=== PATIENT | female | born 1940 | race Caucasian/White ===

== ENCOUNTER 2016-12-10 19:34 | Inpatient (IN) | payer MEDICARE, MEDICAID ==
[2016-12-10 20:18] LABS: #Lymphocytes 0.9 thou/uL (1.20-3.40); #Monocytes 0.7 thou/uL (0.11-0.59); #Neutrophils 15.9 thou/uL (1.40-6.50); %Basophils 0.2 % (0.0-1.0); %Lymphocytes 5.3 % (21.0-51.0); %Monocytes 3.8 % (0.0-10.0); Hematocrit 29.4 % (36.0-47.0); Mean Platelet Volume 6.4 fL (7.4-10.4); Red Blood Cell (RBC) Count 2.76 mill/uL (4.20-5.40); White Blood Cell (WBC) Count 17.6 thou/uL (4.8-10.8)
[2016-12-10 20:43] LABS: ALT (SGPT) 28 U/L (8-55); AST (SGOT) 38 U/L (5-34); Alkaline Phosphatase 103 U/L (40-150); Anion Gap 15 mmol/L (10-20); BUN (Urea Nitrogen) 47 mg/dL (9.8-20.1); Bilirubin, Total 0.2 mg/dL (0.2-1.2); CK (CPK) 207 U/L (29-168); Calc. Creatinine Clearance 0 mL/min (70-130); Calcium 8.8 mg/dL (7.8-10.44); Carbon Dioxide 22 mmol/L (23-31); Chloride 102 mmol/L (98-107); Estimated GFR-MDRD 27; Globulin 3.9 g/dL (2.4-3.5); Protein, Total 6.8 g/dL (6.0-8.3)
[2016-12-10 20:44] LABS: Troponin I 0.039 ng/mL (< 0.028)
[2016-12-10 20:48] LABS: Anisocytosis SLIGHT = 6-15 cells (100X) (0-5/hpf); Macrocytosis SLIGHT = 6-15 cells (100X) (0-5/hpf); Ovalocytes SLIGHT = 2-5 cells (100X) (0-1/hpf); Polychromasia SLIGHT = 2-3 cells (100X) (0-2/hpf); Target Cells SLIGHT = 2-5 cells (100X) (0-1/hpf)
[2016-12-10 20:50] LABS: Schistocytes SLIGHT = 2-5 cells (100X) (0-1/hpf)
[2016-12-10 21:18] LABS: Bilirubin Negative (Negative); Blood, Urine Small (Negative); Glucose, Urine (Dipstick) Negative (Negative); Ketone, Urine Negative (Negative); Nitrite Negative (Negative); Protein, Urine (Dipstick) 100 mg/dL (Neg-Trace); Urobilinogen 0.2 mg/dL (0.2-1.0)
[2016-12-10 21:22] LABS: Bacteria/HPF 4+ HPF (None Seen); Hyaline Casts/LPF 7-10 HYALINE CAST LPF (0-3 Hyaline); RBC/HPF 0-3 HPF (0-3); Squamous Epithelial 0-3 HPF (0-3)
--- NOTE | 2016-12-10 21:50 | RAD ---
PORTABLE CHEST ONE VIEW 12/10/16 at 8:01 p.m. HISTORY: Dyspnea. FINDINGS/IMPRESSION: Comparison made with the exam of 05/03/16. Changes of median sternotomy again seen. The heart size is stable. The aorta is tortuous. The mass-l chrissie opacity in the right upper lobe is again seen and appears slightly larger than on the previous s tudy. No new infiltrates or effusions are identified. POS: MAC
[2016-12-10] MEDS ORDERED: Piperacillin/Tazobactam 3.375 GM VIAL ONE (21:57)
[2016-12-10 22:02] LABS: Anion Gap 13 mmol/L (-14-95); T. Carbon Dioxide 24.5 mmol/L (1.0-85.0); pH (Venous) 7.435 (7.35-7.45); vO2 Saturation-calc 99.5 % (0.0-100.0)
--- NOTE | 2016-12-10 22:25 | PDOC.EVN ---
Event Note - Event Note Event Note: [id number] H&P Dictated 1. Pneumonia 2. Sepsis 3. UTI 4. Hypotension 5. Acute hypoxic respiratory failure 6. Acute COPD exacerbation Plan: see orders
[2016-12-10] MEDS ORDERED: Oxymetazoline HCl 0.05% ( 15 ML ) NASAL PRN (22:43)
[2016-12-10] MEDS ORDERED: Albuterol Sulfate 2.5 mg/3 ml Neb NEB PRN (22:46)
[2016-12-10 22:58] LABS: Lactic Acid - Sepsis 1.1 mmol/L (0.5-2.2)
[2016-12-10] MEDS ORDERED: [UNRECOGNIZED DRUG - OTHER] IVPB PRN (23:29)
[2016-12-10 23:34] LABS: Troponin I 0.031 ng/mL (< 0.028)
[2016-12-10] MEDS: Sodium Chloride 0.9% 1,000 ML IV SCH (23:49)
[2016-12-11] MEDS: Sodium Chloride 0.9% 500 ML IVPB SCH ×2 (00:35→01:44)
[2016-12-11] MEDS ORDERED: Sodium Chloride 0.9% 500 ML IVPB SCH (02:00)
[2016-12-11 05:15] LABS: #Lymphocytes 0.6 thou/uL (1.20-3.40); #Monocytes 0.4 thou/uL (0.11-0.59); #Neutrophils 12.2 thou/uL (1.40-6.50); %Eosinophils 0.1 % (0.0-10.0); %Lymphocytes 4.5 % (21.0-51.0); %Monocytes 2.7 % (0.0-10.0); Hematocrit 27.1 % (36.0-47.0); Mean Platelet Volume 6.5 fL (7.4-10.4); Red Blood Cell (RBC) Count 2.52 mill/uL (4.20-5.40); White Blood Cell (WBC) Count 13.1 thou/uL (4.8-10.8)
[2016-12-11 05:38] LABS: ALT (SGPT) 31 U/L (8-55); AST (SGOT) 37 U/L (5-34); Alkaline Phosphatase 98 U/L (40-150); Anion Gap 13 mmol/L (10-20); BUN (Urea Nitrogen) 40 mg/dL (9.8-20.1); Bilirubin, Total 0.2 mg/dL (0.2-1.2); Calc. Creatinine Clearance 40 mL/min (70-130); Calcium 8.2 mg/dL (7.8-10.44); Carbon Dioxide 21 mmol/L (23-31); Chloride 107 mmol/L (98-107); Estimated GFR-MDRD 38; Globulin 3.6 g/dL (2.4-3.5); Protein, Total 6.2 g/dL (6.0-8.3)
[2016-12-11 05:43] LABS: Troponin I 0.054 ng/mL (< 0.028)
--- NOTE | 2016-12-11 06:58 | HP ---
CHIEF COMPLAINT: Lethargy. HISTORY OF PRESENT ILLNESS: Patient is a 76-year-old female with past medical history of lung CA, hypertension, coronary artery disease, anxiety, depression, hyperlipidemia, dementia and COPD, now came to the hospital because of lethargy. History obtained from the ED physician and the ER notes. The patient does not know why she came to the hospital, but complains of chronic cough. Cough was associated with sputum production. Patient was in a half-way and patient was found lethargic with possible confusion, so patient was brought to the ER. Upon ER arrival, the patient was hypoxic. Her sats were 79% , so patient was placed on BiPAP. Patient complains of chronic cough. Denies any fever, denies any chills, denies chest pain, denies dizziness. Currently, denies any other complaints. PAST MEDICAL HISTORY: As per HPI. PAST SURGICAL HISTORY: CABG and lung biopsy. SOCIAL HISTORY: Positive for smoking. Denies alcohol, denies any drugs. FAMILY HISTORY: Positive for medical problems. REVIEW OF SYSTEMS: Constitutional: Denies any fever, denies any chills. Eyes : No vision problems. Ears: Denies any hearing loss. Neck: Denies neck pain. Cardiovascular: Denies any chest pain. Respiratory: Positive for cough , positive for sputum production. Gastrointestinal: Denies nausea or vomiting. Musculoskeletal: Denies any joint deformities. Integument: Denies any rash. Cranial Nervous System: Positive for lethargy. Psychiatric: Positive for dementia. All other review of systems are reviewed and are negative. PHYSICAL EXAMINATION: CONSTITUTIONAL/VITAL SIGNS: At the time of H\T\P performed, blood pressure is 102/66, pulse ox 98% on BiPAP, heart rate 99 and respiratory rate 18. GENERAL: This patient appears tired and denies patent. HEENT: Nose normal. Ears normal. Teeth, poor dentition. Tongue is moist. FACE: Positive for BiPAP mask. NECK: Supple. No JVD. CARDIOVASCULAR SYSTEM: S1 and S2 present. Regular rate and rhythm. Positive for murmur. No rubs, no gallops. RESPIRATORY SYSTEM: Positive for rhonchi. Positive for wheezing. Positive for crackles. Diminished at the bases, on BiPAP. GASTROINTESTINAL: Abdomen is soft and nontender. No guarding, no organomegaly , no masses felt. MUSCULOSKELETAL: No edema. CRANIAL NERVES SYSTEM: Awake, has difficulty hearing, but follows commands. PSYCHIATRIC: Mood calm. LABORATORY AND IMAGING DATA: At the time of H\T\P performed, white count 17.6, hemoglobin 9.2 and platelet count is 490. Blood gas; pH 7.43, pCO2 35, BMP showed sodium 135, potassium 4.4, chloride 102, CO2 of 22, BUN of 47, creatinine of 1.84, baseline creatinine is around 0.921, alkaline phosphatase 207, troponin 0.039 and serum total protein 2.9. EKG; no acute ST changes. ASSESSMENT AND PLAN: The patient is a 76-year-old female. 1. Hypotension, might be secondary to sepsis and possible infection. Plan is to check urine for culture. Urine is positive for urinary tract infection. Plan to do blood cultures. We will monitor blood pressures closely. Continue IV fluids. 2. Sepsis secondary to urinary tract infection. Continue IV antibiotics. Plan to check 2 sets of blood cultures and urine culture and sensitivity. We will follow the patient closely. 3. Acute hypoxic respiratory failure plus history of lung mass. Chest x-ray showed worsening lung mass. We will place patient on broad-spectrum antibiotics. We will check CT chest to evaluate the infiltrate. We will consult Pulmonology to evaluate the patient. 4. Acute chronic obstructive pulmonary disease exacerbation. Plan to start the patient on breathing treatments and IV steroids. We will monitor respiratory status closely. 5. History of hypertension. Hold blood pressure meds. 6. Acute kidney injury. Monitor creatinine closely. SUSANNA currently might be secondary to hypotension. We will monitor creatinine closely. Continue MIV fluids. The case was discussed in detail with the patient. We will admit the patient to IMU for close monitoring. QUINCY
[2016-12-11] MEDS ORDERED: Mometasone/Formoterol 120 PUFF INHALER INH SCH (07:00)
[2016-12-11] MEDS ORDERED: Amiodarone 200 MG TAB PO SCH ×2 (09:00)
[2016-12-11] MEDS ORDERED: SALMETEROL INH SCH (09:00)
[2016-12-11] MEDS: Cefepime 2 GM, Admixture Fee 1 EACH in Sodium Chloride 0.9% 100 ML IVPB SCH (09:00)
[2016-12-11] MEDS ORDERED: ALPRAZolam 0.5 MG TAB PO SCH (09:00)
[2016-12-11] MEDS ORDERED: Non-Formulary Item 1 EACH (Tiotropium Bromide [Spiriva Respimat] 2 PUFF) INH SCH (09:00)
[2016-12-11] MEDS ORDERED: Apixaban 5 MG TAB PO SCH (09:00)
[2016-12-11] MEDS ORDERED: Pregabalin 75 MG CAP PO SCH (09:00)
[2016-12-11] MEDS ORDERED: FLUTICASONE INH SCH (09:00)
[2016-12-11] MEDS ORDERED: Dextrose 50% Abboject 50 ML SYRINGE SLOW IVP PRN (11:29)
[2016-12-11] MEDS ORDERED: Dextrose 5% in Water 1,000 ML IV PRN (11:29)
[2016-12-11] MEDS: Sodium Chloride 0.9% 1,000 ML IV SCH (11:36)
[2016-12-11] MEDS: HumaLOG 300 UNITS/3 ML VIAL SC PRN ×2 (11:37→15:46)
--- NOTE | 2016-12-11 12:21 | CON ---
DATE OF CONSULTATION: 12/11/2016 SERVICE: Pulmonary Medicine REASON FOR CONSULTATION: Respiratory failure. HISTORY OF PRESENT ILLNESS: The patient is a 76-year-old white female with past medical history sig nificant for schizoaffective disorder. She spends most of her time in the bed or in a wheelchair. She refuses almost all medical therapy. We talked to the nursing facility and they are suggesting that 90% of the time she refuses all medications. Whenever I try to talk to her, she just screams \\ \\"leave me alone, leave me alone\\\\". She was in her usual state of health when she had increasing m entation issues. She was brought to the emergency department. Chest x-ray demonstrated a right upp er lobe lesion that was worse than a recent CT scan. She had a white blood cell count was elevated, marginal blood pressures. As such, she was treated for her severe sepsis with antibiotics. She wa s tucked in to the ICU and transiently was placed on BiPAP, which she then refused. She has been on 2 liters nasal cannula and her sats have been okay. PAST MEDICAL HISTORY: 1. Schizoaffective disorder. 2. Dementia. 3. History of adenocarcinoma of the lung, status post lobectomy on the left. 4. Hypertension. 5. Coronary artery disease. 6. Anxiety disorder. 7. Major depressive disorder. 8. Dyslipidemia. 9. Chronic obstructive pulmonary disease, possible. PAST SURGICAL HISTORY: 1. Left lobectomy: 2. Coronary artery bypass graft. SOCIAL HISTORY: She continues to smoke a pack and a half a day. There is no report of her using al cohol or illicit drugs. FAMILY HISTORY: Noncontributory. ALLERGIES: MEPERIDINE, DIPHENHYDRAMINE. MEDICATIONS: List of inpatient medications was reviewed. Multiple updates were made. REVIEW OF SYSTEMS: Review of systems cannot be obtained as the patient essentially is not cooperati ng. She is more than capable however, of having a conversation. PHYSICAL EXAMINATION: VITAL SIGNS: Afebrile, pulse 90, blood pressure 89/51, respirations 15, saturation 100% on 3 liters nasal cannula. GENERAL: The patient is awake, alert, in no apparent distress with stimulation. She then will go b [facility] to sleep on purpose. LUNGS: Rhonchi are present, particularly on the right. There is not much of a prolonged expiratory phase. She does demonstrates fairly decent air entry. No wheezing or crackles are appreciated. HEART: Normal rate, regular. ABDOMEN: Soft, nontender, nondistended. Bowel sounds are positive. MUSCULOSKELETAL: No cyanosis or clubbing. No pitting in the bilateral lower extremities. NEUROLOGIC: Grossly nonfocal. LABORATORY DATA: WBC 13.1 and down trending, hemoglobin 8.5, platelets 429,000. Ph 7.43, pCO2 35, pO2 161. Creatinine down trending to 1.36. Basic metabolic profile, liver function studies are oth erwise unremarkable. Troponin 0.054 and gently up trending. WBC count in the urine is greater than 50. She has got positive leukocyte esterase and 4+ bacteria. Blood cultures x2 are negative to da te. IMAGIN. Chest x-ray demonstrates a right upper lobe pulmonary mass/infiltrate. 2. CT of the chest - patient refused. ASSESSMENT: 1. Pulmonary mass. 2. Adenocarcinoma of the lung, history of. 3. Healthcare-associated pneumonia versus pulmonary abscess, suspected. 4. Severe sepsis. 5. Acute hypoxic respiratory failure. 6. Schizoaffective disorder and dementia. PLAN: The patient will continue her antibiotics. We will transition her out of the ICU as her low blood pressures have actually stabilized. End-organ damage is also clearing. As such, she will go to the telemetry unit. Palliative Care consultation will be placed as she has significant comorbidi ties and is refusing multiple different types of therapy. We will initiate some Accu-Cheks and insu lito. Pulmonary Critical Care will continue to follow for the time being. Dr. Ritchie will resume c are on Thursday.
[2016-12-11] MEDS: Nicotine 14 MG PATCH TD SCH (16:02)
[2016-12-11] MEDS ORDERED: Ondansetron ODT 4 MG TAB PO PRN (16:09)
[2016-12-11] MEDS ORDERED: HumaLOG 300 UNITS/3 ML VIAL SC PRN (16:09)
[2016-12-11] MEDS ORDERED: Acetaminophen 325 MG TAB PO PRN (16:09)
[2016-12-11] MEDS ORDERED: Ondansetron HCl/PF 4 MG/2 ML Vial IVP PRN (16:09)
[2016-12-11] MEDS ORDERED: Calcium Carbonate 500 MG ChewTAB PO PRN (16:09)
[2016-12-11] MEDS ORDERED: Acetaminophen 650 MG Suppository PR PRN (16:09)
[2016-12-11] MEDS ORDERED: Senokot 8.6 MG TAB PO PRN (16:09)
--- NOTE | 2016-12-11 16:31 | PDOC.PN ---
- Subjective Encounter Start Date: 12/11/16 Encounter Start Time: 15:00 Patient seen and examined. Lethargic. No overnight events - Objective Resuscitation Status: Resuscitation Status FULL:Full Resuscitation MAR Reviewed: Yes Vital Signs & Weight: Vital Signs (12 hours) Temp Pulse Resp Pulse Ox 12/11/16 12:55 95 17 99 12/11/16 12:00 96.6 F L 96 12/11/16 10:31 100 12/11/16 10:26 90 19 99 12/11/16 07:46 97.6 F 78 12 99 12/11/16 07:00 97.6 F 12/11/16 06:52 78 12/11/16 06:51 75 13 88 L Weight Admit Weight 157 lb Weight 157 lb 10.088 oz Most Recent Monitor Data Heart Rate from ECG 106 NIBP 114/71 NIBP BP-Mean 88 Respiration from ECG 15 SpO2 97 I&O: 12/10/16 12/11/16 12/12/16 06:59 06:59 06:59 Intake Total 1400 175 Output Total 1 600 Balance 1399 -425 Result Diagrams: 12/12/16 04:05 12/12/16 04:04 Additional Labs: Accuchecks 12/11/16 12/11/16 15:43 11:33 POC Glucose 205 H 217 H Radiology Reviewed by me: Yes (CXR - reviewed) EKG Reviewed by me: Yes (Tele Afib - rate controlled) Phys Exam - Physical Examination Constitutional: NAD (Lethargic, Opens eyes to pain.) Respiratory: no rales (Scat wheezing/rales. Symmetrical) Cardiovascular: no rub, irregular No heaves/pulsation Gastrointestinal: soft, non-tender, no distention, positive bowel sounds Musculoskeletal: no edema, pulses present Neurological: normal sensation Neuro/Psych - Cannot assess due to sedation. Dx/Plan (1) COPD exacerbation Code(s): J44.1 - CHRONIC OBSTRUCTIVE PULMONARY DISEASE W (ACUTE) EXACERBATION Status: Acute Comment: with suspected Pneumonia ?Pneumococcal (2) Acute hypoxemic respiratory failure Code(s): J96.01 - ACUTE RESPIRATORY FAILURE WITH HYPOXIA Status: Acute (3) Chronic a-fib Code(s): I48.2 - CHRONIC ATRIAL FIBRILLATION Status: Chronic (4) Hx pulmonary embolism Code(s): Z86.711 - PERSONAL HISTORY OF PULMONARY EMBOLISM Status: Chronic (5) Anxiety and depression Code(s): F41.9 - ANXIETY DISORDER, UNSPECIFIED; F32.9 - MAJOR DEPRESSIVE DISORDER, SINGLE EPISODE, UNSPECIFIED Status: Chronic (6) Protein-calorie malnutrition, mild Code(s): E44.1 - MILD PROTEIN-CALORIE MALNUTRITION Status: Chronic (7) CKD (chronic kidney disease), stage III Status: Chronic (8) CAD (coronary artery disease) Code(s): I25.10 - ATHSCL HEART DISEASE OF [place] CORONARY ARTERY W/O ANG PCTRS Status: Chronic (9) Dyslipidemia Code(s): E78.5 - HYPERLIPIDEMIA, UNSPECIFIED Status: Chronic (10) Hypertension Code(s): I10 - ESSENTIAL (PRIMARY) HYPERTENSION Status: Chronic (11) Elevated troponin Code(s): R74.8 - ABNORMAL LEVELS OF OTHER SERUM ENZYMES Status: Acute Comment: due to demand ischemia - Plan cont current plan of care, continue antibiotics, PT/OT, school social worker, speech therapy, DVT proph w/SCDs * The home meds which were started were from last admission. Pt is not on Eliquis/Amiodarone - She however refused all her meds today - Will dc Amiodarone /Eliquis(it was ordered on admission from last discharge) - Patient is on Warfarin at [place] - Stat PT/INR ordered. * AM labs * Pulm following * Cont to monitor * Transfer to [facility] * Resume Warfarin * Add Nebs/Nicotin patch Review of Systems - Review of Systems Other: Cannot be obtained due to current mentation - Medications/Allergies Allergies/Adverse Reactions: Allergies Allergy/AdvReac Type Severity Reaction Status Date / Time meperidine HCl [From Demerol] Allergy Intermediate Nausea Verified 12/11/16 00: 09 diphenhydramine Allergy Verified 12/11/16 00:09 [From Benadryl] Medications: Current Medications Acetaminophen (Tylenol) 650 mg PO Q4H PRN PRN Reason: Headache/Fever or Pain Acetaminophen (Tylenol) 650 mg PA Q4H PRN PRN Reason: Headache/Fever or Pain Albuterol Sulfate (Ventolin) 2.5 mg NEB Q2H PRN PRN Reason: Wheezing Albuterol/Ipratropium (Duoneb) 3 ml IPPB [id number] JENNIFER Last Admin: 12/11/16 12:55 Dose: 3 ml Albuterol/Ipratropium (Duoneb) 3 ml NEB [id number] PRN PRN Reason: SOB &/or Wheezing Albuterol/Ipratropium (Duoneb) 3 ml NEB [id number] JENNIFER Atorvastatin Calcium (Lipitor) 10 mg PO HS [facility] Calcium Carbonate (Tums) 1,000 mg PO Q4H PRN PRN Reason: Heartburn or Indigestion Dextrose/Water (Dextrose 50%) 25 gm SLOW IVP PRN PRN PRN Reason: Hypoglycemia Divalproex Sodium (Depakote Sprinkle) 125 mg PO BID JENNIFER Docusate Sodium (Colace) 100 mg PO BID [facility] Famotidine (Pepcid) 20 mg PO DAILY JENNIFER Glucagon (Glucagon) 1 mg IM PRN PRN PRN Reason: Hypoglycemia Cefepime HCl 2 gm/Miscellaneous Medication 1 each/ Sodium Chloride 100 mls @ 200 mls/hr IVPB Q24HR [facility] Last Admin: 12/11/16 09:00 Dose: 100 mls Sodium Chloride (Normal Saline 0.9%) 1,000 mls @ 75 mls/hr IV .[id number] [facility] Last Admin: 12/11/16 11:36 Dose: 1,000 mls Vancomycin HCl 1 gm/ Device 200 mls @ 200 mls/hr IVPB Q24HR [facility] Dextrose/Water (D5w) 1,000 mls @ 0 mls/hr IV .Q0M PRN; As Directed PRN Reason: Hypoglycemia Insulin Human Lispro (Humalog) 0 units SC .MODERATE SLIDING SC PRN PRN Reason: Moderate Correctional Scale Last Admin: 12/11/16 15:46 Dose: 4 unit Insulin Human Lispro (Humalog) 0 units SC .BEDTIME SLIDING SC PRN PRN Reason: Bedtime Correctional Scale Miscellaneous Medication (Pharmacy To Dose) 0 each IVPB PRN PRN PRN Reason: VANC/RENAL Pharmacy to Dose Nicotine (Nicoderm Patch) 14 mg TD Q24HR [facility] Last Admin: 12/11/16 16:02 Dose: 14 mg Non-Formulary Medication (Umeclidinium/Vilanterol [Anoro Ellipta 62.5/25 Mcg Inh ]) 1 puff IH DAILY-RT [facility] Non-Formulary Medication (Umeclidinium Delta [Incruse Ellipta]) 1 inh IH DAILY JENNIFER Ondansetron HCl (Zofran Odt) 4 mg PO Q6H PRN PRN Reason: Nausea/Vomiting Ondansetron HCl (Zofran) 4 mg IVP Q6H PRN PRN Reason: Nausea/Vomiting Prednisone (Prednisone) 10 mg PO QAM-WM [facility] Senna (Senokot) 2 tab PO HSPRN PRN PRN Reason: Constipation Sodium Chloride (Flush - Normal Saline) 10 ml IVF Q12HR [facility] Last Admin: 12/11/16 09:01 Dose: 10 ml Sodium Chloride (Flush - Normal Saline) 10 ml IVF PRN PRN PRN Reason: Saline Flush Warfarin Sodium (Coumadin) 1.25 mg PO ASDIR JENNIFER Warfarin Sodium (Coumadin) 5 mg PO ASDIR JENNIFER
[2016-12-11] MEDS ORDERED: Warfarin Sodium 1.25 MG HALF.TAB PO SCH (17:00)
[2016-12-11] MEDS ORDERED: WARFARIN PO PRN (17:15)
[2016-12-11] MEDS ORDERED: Phytonadione 10 MG/ML AMP PO SCH (18:15)
[2016-12-11 18:28] LABS: PTT 109.5 SEC (22.9-36.1); Prothrombin Time 120.4 SEC (12.0-14.7)
[2016-12-11] MEDS ORDERED: Vancomycin HCl 1 GM in Premix Bag 1 BAG IVPB SCH (21:00)
[2016-12-11] MEDS ORDERED: Donepezil HCl 5 MG TAB PO SCH (21:00)
[2016-12-11] MEDS: Docusate 100 MG CAP PO SCH (21:46)
[2016-12-11] MEDS: Atorvastatin Calcium 10 MG TAB PO SCH (21:46)
[2016-12-11] MEDS: Divalproex Sodium 125 mg Sprinkle Capsule PO SCH (21:46)
[2016-12-12 04:23] LABS: #Lymphocytes 0.7 thou/uL (1.20-3.40); #Monocytes 0.7 thou/uL (0.11-0.59); #Neutrophils 11.1 thou/uL (1.40-6.50); %Eosinophils 0.1 % (0.0-10.0); %Lymphocytes 5.3 % (21.0-51.0); %Monocytes 5.7 % (0.0-10.0); Hematocrit 25.9 % (36.0-47.0); Mean Platelet Volume 6.6 fL (7.4-10.4); Red Blood Cell (RBC) Count 2.42 mill/uL (4.20-5.40); White Blood Cell (WBC) Count 12.5 thou/uL (4.8-10.8)
[2016-12-12 04:39] LABS: Prothrombin Time 65.6 SEC (12.0-14.7)
[2016-12-12 04:48] LABS: ALT (SGPT) 70 U/L (8-55); AST (SGOT) 73 U/L (5-34); Alkaline Phosphatase 98 U/L (40-150); Anion Gap 11 mmol/L (10-20); BUN (Urea Nitrogen) 39 mg/dL (9.8-20.1); Bilirubin, Total Less than 0.2 mg/dL (0.2-1.2); Calc. Creatinine Clearance 50 mL/min (70-130); Calcium 8.3 mg/dL (7.8-10.44); Carbon Dioxide 22 mmol/L (23-31); Chloride 105 mmol/L (98-107); Estimated GFR-MDRD 49; Globulin 3.5 g/dL (2.4-3.5); Phosphorus 1.2 mg/dL (2.3-4.7); Protein, Total 6.1 g/dL (6.0-8.3)
[2016-12-12] MEDS ORDERED: Phytonadione 10 MG/ML AMP PO SCH (05:30)
[2016-12-12] MEDS: Sodium Chloride 0.9% 1,000 ML IV SCH (06:50)
[2016-12-12] MEDS: HumaLOG 300 UNITS/3 ML VIAL SC PRN (06:54)
[2016-12-12] MEDS ORDERED: Non-Formulary Item 1 EACH (Umeclidinium/Vilanterol [Anoro Ellipta 62.5/25 Mcg Inh] 1 PUFF IH SCH (07:00)
[2016-12-12] MEDS: predniSONE 5 MG TAB PO SCH (08:42)
[2016-12-12] MEDS: Famotidine 20 MG TAB PO SCH (08:43)
[2016-12-12] MEDS: Divalproex Sodium 125 mg Sprinkle Capsule PO SCH ×2 (08:43→20:03)
[2016-12-12] MEDS: Docusate 100 MG CAP PO SCH ×2 (08:43→20:29)
[2016-12-12] MEDS ORDERED: Non-Formulary Item 1 EACH (Umeclidinium Bromide [Incruse Ellipta] 1 INH) IH SCH (09:00)
[2016-12-12] MEDS: Cefepime 2 GM, Admixture Fee 1 EACH in Sodium Chloride 0.9% 100 ML IVPB SCH (09:28)
[2016-12-12] MEDS ORDERED: Sodium Chloride 0.9% 1,000 ML IV SCH (12:54)
[2016-12-12] MEDS ORDERED: Furosemide 20 MG/2 ML VIAL SLOW IVP SCH (13:00)
--- NOTE | 2016-12-12 13:22 | PRG ---
DATE OF SERVICE: 12/12/2016 SERVICE: Pulmonary Medicine INTERVAL HISTORY: The patient is doing outstanding from a cardiovascular and respiratory standpoint . She is breathing comfortably. She has no discomfort. She is much more awake and communicative t his morning. PHYSICAL EXAMINATION: VITAL SIGNS: Afebrile, pulse 98, blood pressure 105/67, respirations 20, saturation 96% on room air . GENERAL: The patient is awake, alert, in no apparent distress. LUNGS: Decreased air entry. There is rhonchi on the right. Crackles are minimal. HEART: Normal rate, regular. ABDOMEN: Soft, nontender, nondistended. Bowel sounds positive. MUSCULOSKELETAL: No cyanosis or clubbing. No pitting in the bilateral lower extremities. NEUROLOGIC: Grossly nonfocal. LABORATORY DATA: WBC 12.5, hemoglobin 8.1, platelets 461,000. INR 7.1 and down trending. B12 and folate are unremarkable. Glucose is elevated at 260. Basic metabolic profile is otherwise unremark able. Liver function studies including AST and ALT are gently up trending. Urine culture is growin g E. coli. Blood cultures growing coag negative Staph in 1 out of 2. ASSESSMENT: 1. Pulmonary mass. 2. Adenocarcinoma of the right upper lobe. 3. Healthcare-associated pneumonia versus abscess, suspected. 4. Severe sepsis. 5. Urinary tract infection secondary to Escherichia coli. 6. Acute hypoxic respiratory failure, resolved. 7. Schizoaffective disorder and dementia. PLAN: The patient will continue her antibiotics. We are awaiting the sensitivities on the E. coli. From a purely respiratory perspective, the patient is stable for transition to the medical unit. Pulmonary will continue to follow and Dr. Ritchie will resume care on Thursday.
--- NOTE | 2016-12-12 16:02 | PDOC.PN ---
- Subjective Encounter Start Date: 12/12/16 Encounter Start Time: 16:00 Patient seen and examined. No new complaints. No overnight events. Mentation improving. - Objective Resuscitation Status: Resuscitation Status FULL:Full Resuscitation MAR Reviewed: Yes Vital Signs & Weight: Vital Signs (12 hours) Temp Pulse Resp BP Pulse Ox 12/12/16 15:16 98.8 F 105 H 20 104/69 91 L 12/12/16 12:06 90 14 12/12/16 11:22 98.3 F 98 20 105/67 96 12/12/16 08:00 97.8 F 113 H 18 96 12/12/16 07:12 97.8 F 113 H 20 119/61 95 12/12/16 06:25 95 14 Weight Admit Weight 157 lb Weight 157 lb 10.088 oz Most Recent Monitor Data Heart Rate from ECG 106 NIBP 114/71 NIBP BP-Mean 88 Respiration from ECG 15 SpO2 97 I&O: 12/11/16 12/12/16 12/13/16 06:59 06:59 06:59 Intake Total 1400 2475 Output Total 1 600 Balance 1399 1875 Result Diagrams: 12/12/16 04:05 12/12/16 04:04 Additional Labs: Accuchecks 12/12/16 12/12/16 12/11/16 11:25 05:25 20:35 POC Glucose 157 H 260 H 274 H Laboratory Tests 12/11/16 12/12/16 17:36 04:05 INR 15.0 H* 7.1 H* Laboratory Tests 12/12/16 04:04 Phosphorus 1.2 L EKG Reviewed by me: Yes (Tele Afib) Phys Exam - Physical Examination Constitutional: NAD Respiratory: no wheezing, no rales, no rhonchi Symmetrical Cardiovascular: no rub, irregular no heaves/pulsations Gastrointestinal: soft, non-tender, no distention, positive bowel sounds Musculoskeletal: no edema Neurological: moves all 4 limbs Psychiatric: A&O x 3 Dx/Plan (1) Toxic metabolic encephalopathy Code(s): G92 - TOXIC ENCEPHALOPATHY Status: Acute (2) Acute hypoxemic respiratory failure Code(s): J96.01 - ACUTE RESPIRATORY FAILURE WITH HYPOXIA Status: Acute (3) COPD exacerbation Code(s): J44.1 - CHRONIC OBSTRUCTIVE PULMONARY DISEASE W (ACUTE) EXACERBATION Status: Acute Comment: with suspected Pneumonia ?Pneumococcal (4) Chronic a-fib Code(s): I48.2 - CHRONIC ATRIAL FIBRILLATION Status: Chronic (5) Hx pulmonary embolism Code(s): Z86.711 - PERSONAL HISTORY OF PULMONARY EMBOLISM Status: Chronic (6) Anxiety and depression Code(s): F41.9 - ANXIETY DISORDER, UNSPECIFIED; F32.9 - MAJOR DEPRESSIVE DISORDER, SINGLE EPISODE, UNSPECIFIED Status: Chronic (7) Protein-calorie malnutrition, mild Code(s): E44.1 - MILD PROTEIN-CALORIE MALNUTRITION Status: Chronic (8) CKD (chronic kidney disease), stage III Status: Chronic (9) CAD (coronary artery disease) Code(s): I25.10 - ATHSCL HEART DISEASE OF [place] CORONARY ARTERY W/O ANG PCTRS Status: Chronic (10) Dyslipidemia Code(s): E78.5 - HYPERLIPIDEMIA, UNSPECIFIED Status: Chronic (11) Hypertension Code(s): I10 - ESSENTIAL (PRIMARY) HYPERTENSION Status: Chronic (12) Elevated troponin Code(s): R74.8 - ABNORMAL LEVELS OF OTHER SERUM ENZYMES Status: Acute Comment: due to demand ischemia (13) E-coli UTI Code(s): N39.0 - URINARY TRACT INFECTION, SITE NOT SPECIFIED; B96.20 - UNSP ESCHERICHIA COLI THE CAUSE OF DISEASES CLASSD ELSWHR Status: Acute (14) Supratherapeutic INR Code(s): R79.1 - ABNORMAL COAGULATION PROFILE Status: Acute (15) Abnormal LFTs Code(s): R79.89 - OTHER SPECIFIED ABNORMAL FINDINGS OF BLOOD CHEMISTRY Status : Acute (16) Electrolyte abnormality Code(s): E87.8 - OTH DISORDERS OF ELECTROLYTE AND FLUID BALANCE, NEC Status: Acute Comment: Hypophosphatemia - Plan cont current plan of care, continue antibiotics * DC Vancomycin * PT/INR in AM * Received Vit K earlier today * Replace electrolytes * Cont to monitor * AM labs Review of Systems - Review of Systems Cardiovascular: negative: Chest Pain, Palpitations, Orthopnea, Paroxysmal Noc. Dyspnea, Edema, Light Headedness, Other Gastrointestinal: negative: Nausea, Vomiting, Abdominal Pain, Diarrhea, Constipation, Melena, Hematochezia, Other - Medications/Allergies Allergies/Adverse Reactions: Allergies Allergy/AdvReac Type Severity Reaction Status Date / Time meperidine HCl [From Demerol] Allergy Intermediate Nausea Verified 12/11/16 00: 09 diphenhydramine Allergy Verified 12/11/16 00:09 [From Benadryl] Medications: Current Medications Acetaminophen (Tylenol) 650 mg PO Q4H PRN PRN Reason: Headache/Fever or Pain Acetaminophen (Tylenol) 650 mg [place] Q4H PRN PRN Reason: Headache/Fever or Pain Albuterol Sulfate (Ventolin) 2.5 mg NEB Q2H PRN PRN Reason: Wheezing Albuterol/Ipratropium (Duoneb) 3 ml NEB [id number] PRN PRN Reason: SOB &/or Wheezing Atorvastatin Calcium (Lipitor) 10 mg PO HS [facility] Last Admin: 12/11/16 21:46 Dose: 10 mg Calcium Carbonate (Tums) 1,000 mg PO Q4H PRN PRN Reason: Heartburn or Indigestion Dextrose/Water (Dextrose 50%) 25 gm SLOW IVP PRN PRN PRN Reason: Hypoglycemia Diltiazem HCl (Cardizem) 30 mg PO TID [facility] Last Admin: 12/12/16 14:39 Dose: 30 mg Divalproex Sodium (Depakote Sprinkle) 125 mg PO BID [facility] Last Admin: 12/12/16 08:43 Dose: 125 mg Docusate Sodium (Colace) 100 mg PO BID [facility] Last Admin: 12/12/16 08:43 Dose: 100 mg Famotidine (Pepcid) 20 mg PO DAILY [facility] Last Admin: 12/12/16 08:43 Dose: 20 mg Glucagon (Glucagon) 1 mg IM PRN PRN PRN Reason: Hypoglycemia Cefepime HCl 2 gm/Miscellaneous Medication 1 each/ Sodium Chloride 100 mls @ 200 mls/hr IVPB Q24HR [facility] Last Admin: 12/12/16 09:28 Dose: 100 mls Dextrose/Water (D5w) 1,000 mls @ 0 mls/hr IV .Q0M PRN; As Directed PRN Reason: Hypoglycemia Sodium Chloride (Normal Saline 0.9%) 1,000 mls @ 0 mls/hr IV .Q0M JENNIFER PRN Reason: KVO Insulin Human Lispro (Humalog) 0 units SC .MODERATE SLIDING SC PRN PRN Reason: Moderate Correctional Scale Last Admin: 12/12/16 06:54 Dose: 6 unit Insulin Human Lispro (Humalog) 0 units SC .BEDTIME SLIDING SC PRN PRN Reason: Bedtime Correctional Scale Last Admin: 12/11/16 21:47 Dose: 3 units Miscellaneous Medication (Pharmacy To Dose) 0 each IVPB PRN PRN PRN Reason: VANC/RENAL Pharmacy to Dose Miscellaneous Medication (Pharmacy To Dose) 1 each PO PRN PRN PRN Reason: INR GOAL = 2-3 Miscellaneous Medication (Phos-Nak) 2 pkt PO TID [facility] Stop: 12/13/16 21:01 Last Admin: 12/12/16 14:39 Dose: 2 pkt Nicotine (Nicoderm Patch) 14 mg TD Q24HR [facility] Last Admin: 12/11/16 16:02 Dose: 14 mg Ondansetron HCl (Zofran Odt) 4 mg PO Q6H PRN PRN Reason: Nausea/Vomiting Ondansetron HCl (Zofran) 4 mg IVP Q6H PRN PRN Reason: Nausea/Vomiting Prednisone (Prednisone) 10 mg PO QAM-[facility] Last Admin: 12/12/16 08:42 Dose: 10 mg Senna (Senokot) 2 tab PO HSPRN PRN PRN Reason: Constipation Sodium Chloride (Flush - Normal Saline) 10 ml IVF Q12HR [facility] Last Admin: 12/12/16 08:45 Dose: 10 ml Sodium Chloride (Flush - Normal Saline) 10 ml IVF PRN PRN PRN Reason: Saline Flush Warfarin Sodium (Coumadin) 1.25 mg PO TuThSa@1700 JENNIFER Warfarin Sodium (Coumadin) 5 mg PO SuMoWeFr@1700 [facility]
[2016-12-12] MEDS ORDERED: Warfarin Sodium 5 MG TAB PO SCH (17:00)
[2016-12-12] MEDS: Nicotine 14 MG PATCH TD SCH (17:10)
[2016-12-12] MEDS: Nystatin 500,000 UNITS/5 ML UDCUP SSW SCH ×2 (17:11→20:01)
[2016-12-12] MEDS: Atorvastatin Calcium 10 MG TAB PO SCH (20:00)
[2016-12-12] MEDS: Nystatin Powder 15 GM BOT TOP SCH (20:10)
[2016-12-13 05:25] LABS: Prothrombin Time 17.6 SEC (12.0-14.7)
[2016-12-13] MEDS: Nystatin 500,000 UNITS/5 ML UDCUP SSW SCH ×4 (09:20→19:43)
[2016-12-13] MEDS: Cefepime 2 GM, Admixture Fee 1 EACH in Sodium Chloride 0.9% 100 ML IVPB SCH (09:21)
[2016-12-13] MEDS: predniSONE 5 MG TAB PO SCH (09:21)
[2016-12-13] MEDS: Famotidine 20 MG TAB PO SCH (09:23)
[2016-12-13] MEDS: Docusate 100 MG CAP PO SCH ×2 (09:23→19:45)
[2016-12-13] MEDS: Divalproex Sodium 125 mg Sprinkle Capsule PO SCH ×2 (09:28→19:45)
[2016-12-13] MEDS: Nystatin Powder 15 GM BOT TOP SCH ×2 (09:28→19:46)
--- NOTE | 2016-12-13 10:52 | PDOC.PN ---
- Subjective Encounter Start Date: 12/13/16 Encounter Start Time: 10:00 Subjective: Expresses no complaint. - Objective Resuscitation Status: Resuscitation Status FULL:Full Resuscitation Vital Signs & Weight: Vital Signs (12 hours) Temp Pulse Resp BP Pulse Ox 12/13/16 08:00 98.8 F 124 H 20 92 L 12/13/16 07:48 98.8 F 124 H 20 134/79 96 12/13/16 04:00 98.6 F 109 H 20 130/83 97 12/12/16 23:32 98.9 F 91 20 112/61 96 Weight Admit Weight 157 lb Weight 157 lb 10.088 oz Most Recent Monitor Data Heart Rate from ECG 106 NIBP 114/71 NIBP BP-Mean 88 Respiration from ECG 15 SpO2 97 I&O: 12/12/16 12/13/16 12/14/16 06:59 06:59 06:59 Intake Total 2475 1320 Output Total 600 Balance 1875 1320 Result Diagrams: 12/12/16 04:05 12/12/16 04:04 Additional Labs: Accuchecks 12/13/16 12/12/16 12/12/16 06:02 20:23 16:53 POC Glucose 95 177 H 182 H 12/12/16 11:25 POC Glucose 157 H Phys Exam - Physical Examination HEENT: sclera anicteric Neck: no JVD Respiratory: no wheezing, no rhonchi Cardiovascular: irregular Gastrointestinal: soft, non-tender Musculoskeletal: no edema Neurological: moves all 4 limbs Psychiatric: normal affect Dx/Plan (1) Atrial fibrillation Code(s): I48.91 - UNSPECIFIED ATRIAL FIBRILLATION Status: Chronic Plan: Cardiology consulted. Comment: Has been having rapid ventricular response.. (2) CAD (coronary artery disease) Code(s): I25.10 - ATHSCL HEART DISEASE OF [place] CORONARY ARTERY W/O ANG PCTRS Status: Chronic Comment: stable. (3) CKD (chronic kidney disease), stage III Status: Chronic (4) Chronic a-fib Code(s): I48.2 - CHRONIC ATRIAL FIBRILLATION Status: Chronic (5) Dyslipidemia Code(s): E78.5 - HYPERLIPIDEMIA, UNSPECIFIED Status: Chronic (6) Hx pulmonary embolism Code(s): Z86.711 - PERSONAL HISTORY OF PULMONARY EMBOLISM Status: Chronic (7) Hypertension Code(s): I10 - ESSENTIAL (PRIMARY) HYPERTENSION Status: Chronic Plan: stable.. - Plan BxC negative.. -: continue current therapy -: f/u with cardiology * .
--- NOTE | 2016-12-13 11:55 | CON ---
DATE OF CONSULTATION: 12/13/2016 CARDIOLOGY CONSULTATION REASON FOR CONSULTATION: AFib, RVR. HISTORY OF PRESENT ILLNESS: Mrs. Hernandez is a very pleasant 76-year-old white female, who comes to [facility] for respiratory issues. She was admitted, apparently she has been refusing a lot of medi silas care at her living facility, apparently about 90% of the time she does not take any of her medic ations. She has a history of adenocarcinoma of the lung with COPD and dementia and has had pulmonar y embolisms in the past and is on chronic Coumadin for this. Her INR was supratherapeutic when she came in at 15 and is backed down to 1.4, earlier today she went into AFib RVR, heart rate in the 150 s, so Cardiology has been consulted for this. On talking with Mrs. Hernandez, she denies any chest pain , tightness, pressure and denies any shortness of breath, denies any lightheadedness, syncope or pre syncope in the last few hours when the AFib has been on. PAST MEDICAL HISTORY: 1. Schizoaffective disorder. 2. Dementia. 3. Adenocarcinoma of the lung, status post left lobectomy. 4. Hypertension. 5. Coronary artery disease, status post bypass grafting. 6. Anxiety disorder. 7. Major depressive disorder. 8. Hyperlipidemia. 9. COPD. PAST SURGICAL HISTORY: 1. Left lobectomy. 2. Coronary artery bypass grafting. SOCIAL HISTORY: Smokes a pack and half a day. No alcohol or drug use. FAMILY HISTORY: Noncontributory. OUTPATIENT MEDICATIONS: Were reviewed. She is on, 1. Trazodone. 2. Dexamethasone. 3. Coumadin. 4. Zyprexa. 5. Zoloft. 6. Zofran. 7. Vitamin C. 8. Xanax. 9. Vitamin B12. 10. Tylenol. 11. Trazodone. 12. Tessalon Perles. 13. Prednisone. 14. Promethazine. 15. Novolin R. 16. Multivitamin. 17. Lisinopril 10 mg a day. 18. Lipitor 10 mg at bedtime. 19. Loperamide. 20. Glipizide. 21. Folic acid. 22. Pepcid. 23. Cardizem 30 mg p.o. t.i.d. 24. Depakote. 25. Aricept. 26. Anoro Ellipta. 27. Albuterol inhaler. ALLERGIES: MEPERIDINE and DIPHENHYDRAMINE. REVIEW OF SYSTEMS: A 12-point review of systems was done and is all negative unless stated in the h istory of present illness. I am sure this is reliable given her some level of dementia. PHYSICAL EXAMINATION: VITAL SIGNS: Temperature 98.4, pulse 150, respiratory rate 20, satting 96% on room air, blood press ure 134/79. GENERAL: Awake, alert. She is oriented to person only, in no distress. HEENT: Normocephalic, atraumatic. NECK: Supple. LUNGS: Lungs have diminished breath sounds bilaterally. CARDIOVASCULAR: Irregularly irregular, heart rhythm 150s. Soft, grade 2/6 systolic murmur in the r ight upper sternal border. ABDOMEN: Soft, positive bowel sounds. EXTREMITIES: No edema. SKIN: Warm and dry. LABORATORY WORK: Reviewed. White count of 17 on admission down at 12, hemoglobin of 8.1, hematocri t of 25 and platelet count of 461,000. Coags: INR 15 on admission, 1.4 now. Chemistries were revi ewed. Last done was from yesterday. Her sodium is 134, potassium is 4.1, chloride 105, carbon diox jae of 22, anion gap of 11, BUN 39, creatinine 1.09, GFR 49, glucose of 288, phosphorus of 1.2, magn esium of 2.0. AST and ALT are high in the 70s. Albumin of 2.6. Vitamin B12 is high. Folate is no rmal. UA was turbid with 100 proteins, small blood, large leukocyte esterase with 50 white bloods, 4+ bacteria. EKG shows AFib, RVR. Chest x-ray shows right upper pulmonary lobe mass versus infiltrate. The cel[place] ent refused CT of the chest. ASSESSMENT AND PLAN: 1. Atrial fibrillation, rapid ventricular response, we will start rate control with diltiazem drip. If she does not control with this drip, later today we will have to switch her to amiodarone drip. At this time, she is hemodynamically stable and her blood pressure should allow for diltiazem drip . 2. Pulmonary mass, Pulmonary following. 3. Healthcare-associated pneumonia versus an abscess. 4. Severe sepsis per primary team. Thank you for letting us to participate in the care of your patient. We will continue to follow.
[2016-12-13] MEDS: Diltiazem 125 MG in Sodium Chloride 0.9% 100 ML IVPB SCH (12:08)
--- NOTE | 2016-12-13 13:21 | PRG ---
DATE OF SERVICE: 12/13/2016 SUBJECTIVE: This morning, she is awake, alert, responsive. OBJECTIVE: VITAL SIGNS: Blood pressure 134/79, sats 96%, pulse 120-140 AFib with temperature 98. I's \T\ O's have been good with 2475. CHEST: Decreased breath sounds without any wheezing. CARDIAC: Normal S1, S2. No gallops. ABDOMEN: Soft. No masses. LABORATORY DATA: Urine is growing E. coli sensitive to the present antibiotic. IMPRESSION: 1. Urinary tract infection. 2. Hypotension, resolved. 2. Atrial fibrillation. 3. Chronic obstructive pulmonary disease, lung mass. PLAN: Continue Cardizem. We are going to consider Cardiology input, they seen her in the past. Wi ll notify Dr. Ritchie on Thursday.
[2016-12-13] MEDS: Nicotine 14 MG PATCH TD SCH (15:06)
[2016-12-13] MEDS: Warfarin Sodium 2 MG TAB PO SCH (16:46)
[2016-12-13] MEDS ORDERED: Warfarin Sodium 2.5 MG TAB PO SCH (17:00)
[2016-12-13] MEDS: Atorvastatin Calcium 10 MG TAB PO SCH (19:43)
[2016-12-13] MEDS: HumaLOG 300 UNITS/3 ML VIAL SC PRN (20:34)
[2016-12-14 04:56] LABS: Anion Gap 13 mmol/L (10-20); BUN (Urea Nitrogen) 16 mg/dL (9.8-20.1); Calc. Creatinine Clearance 68 mL/min (70-130); Calcium 8.9 mg/dL (7.8-10.44); Carbon Dioxide 24 mmol/L (23-31); Chloride 105 mmol/L (98-107); Estimated GFR-MDRD 71
[2016-12-14] MEDS: predniSONE 5 MG TAB PO SCH (08:50)
[2016-12-14] MEDS: Famotidine 20 MG TAB PO SCH (08:50)
[2016-12-14] MEDS: Divalproex Sodium 125 mg Sprinkle Capsule PO SCH ×2 (08:50→21:01)
[2016-12-14] MEDS: Nystatin 500,000 UNITS/5 ML UDCUP SSW SCH ×4 (08:51→21:02)
[2016-12-14] MEDS: Cefepime 2 GM, Admixture Fee 1 EACH in Sodium Chloride 0.9% 100 ML IVPB SCH ×3 (08:56→21:01)
[2016-12-14] MEDS: Docusate 100 MG CAP PO SCH ×2 (09:37→21:01)
--- NOTE | 2016-12-14 10:47 | PDOC.PN ---
- Subjective Encounter Start Date: 12/14/16 Encounter Start Time: 09:10 Subjective: No specific complaint. - Objective Resuscitation Status: Resuscitation Status FULL:Full Resuscitation MAR Reviewed: Yes Vital Signs & Weight: Vital Signs (12 hours) Temp Pulse Resp BP Pulse Ox 12/14/16 10:13 85 16 93 L 12/14/16 08:00 98.8 F 119 H 16 91 L 12/14/16 07:10 98.8 F 119 H 16 134/79 91 L 12/14/16 04:00 100.2 F H 116 H 21 H 141/90 H 96 12/14/16 00:00 98.9 F 108 H 20 152/94 H 98 Weight Admit Weight 157 lb Weight 157 lb 10.088 oz Most Recent Monitor Data Heart Rate from ECG 106 NIBP 114/71 NIBP BP-Mean 88 Respiration from ECG 15 SpO2 97 I&O: 12/13/16 12/14/16 12/15/16 06:59 06:59 06:59 Intake Total 1320 680 Balance 1320 680 Result Diagrams: 12/12/16 04:05 12/14/16 04:20 Additional Labs: Accuchecks 12/13/16 12/13/16 12/13/16 19:51 16:41 11:16 POC Glucose 249 H 132 H 115 H EKG Reviewed by me: Yes Phys Exam - Physical Examination HEENT: PERRLA, moist MMs, sclera anicteric Neck: no JVD Respiratory: clear to auscultation bilateral Cardiovascular: irregular Gastrointestinal: soft, non-tender, no distention Musculoskeletal: edema present Neurological: moves all 4 limbs Psychiatric: normal affect Dx/Plan (1) Atrial fibrillation Code(s): I48.91 - UNSPECIFIED ATRIAL FIBRILLATION Status: Chronic Comment: Has been having rapid ventricular response.. On cardiazem dip. Seen by cardiology. (2) CAD (coronary artery disease) Code(s): I25.10 - ATHSCL HEART DISEASE OF [place] CORONARY ARTERY W/O ANG PCTRS Status: Chronic Comment: stable. (3) CKD (chronic kidney disease), stage III Status: Chronic (4) Chronic a-fib Code(s): I48.2 - CHRONIC ATRIAL FIBRILLATION Status: Chronic (5) Dyslipidemia Code(s): E78.5 - HYPERLIPIDEMIA, UNSPECIFIED Status: Chronic (6) Hx pulmonary embolism Code(s): Z86.711 - PERSONAL HISTORY OF PULMONARY EMBOLISM Status: Chronic (7) Hypertension Code(s): I10 - ESSENTIAL (PRIMARY) HYPERTENSION Status: Chronic (8) Lung mass Code(s): R91.8 - OTHER NONSPECIFIC ABNORMAL FINDING OF LUNG FIELD Status: Acute Plan: As per pulmonary. - Plan Continue current therapy, -: Overall condition much better. * .
[2016-12-14] MEDS: Diltiazem 125 MG in Sodium Chloride 0.9% 100 ML IVPB SCH (11:29)
--- NOTE | 2016-12-14 12:50 | PRG ---
DATE OF SERVICE: 12/14/2016 SUBJECTIVE: This morning, he is awake, alert, responsive, still short of breath, still wheezing. PHYSICAL EXAMINATION: VITAL SIGNS: Blood pressure 134/79, sats are 91%, respirations 16, temperature 98. CHEST: Bilateral wheezing. CARDIAC: Normal S1, S2. No gallops. ABDOMEN: Soft. No masses. LABORATORY DATA: Blood culture is growing coag negative Staph. IMPRESSION: 1. Lung cancer. 2. Pneumonia. 3. Chronic obstructive pulmonary disease. 4. Dementia. 5. Schizophrenia. PLAN: Continue neb treatments, continue Cardizem, continue prednisone and supportive care. We will follow.
[2016-12-14] MEDS: Nystatin Powder 15 GM BOT TOP SCH ×2 (13:11→21:02)
[2016-12-14] MEDS: Nicotine 14 MG PATCH TD SCH (16:53)
[2016-12-14] MEDS: Warfarin Sodium 2 MG TAB PO SCH (16:53)
--- NOTE | 2016-12-14 17:01 | PDOC.CTH ---
Cardiology Progress Note - Subjective No new issues. - Objective Vital Signs Temp Pulse Pulse Pulse Resp BP BP 12/14/16 15:08 98.4 F 104 H 20 12/14/16 14:30 82 84 127/60 132/64 12/14/16 11:04 98.7 F 105 H 18 12/14/16 10:13 85 16 12/14/16 08:00 98.8 F 119 H 16 12/14/16 07:10 98.8 F 119 H 16 BP Pulse Ox 12/14/16 15:08 129/75 93 L 12/14/16 14:30 12/14/16 11:04 106/68 93 L 12/14/16 10:13 93 L 12/14/16 08:00 91 L 12/14/16 07:10 134/79 91 L Admit Weight 157 lb Weight 157 lb 10.088 oz 12/13/16 12/14/16 12/15/16 06:59 06:59 06:59 Intake Total 1320 680 Balance 1320 680 - Physical Examination General/Neuro: alert & oriented x3, NAD Neck: no JVD present Lungs: unlabored respirations Heart: other: (irreg) Abdomen: NT/ND Extremities: other: (no edema) - Telemetry Telemetry Rhythm: Afib 90-110 - Labs Result Diagrams: 12/12/16 04:05 12/14/16 04:20 Troponin/CKMB CK-MB (CK-2) 2.1 ng/mL (0-6.6) 12/10/16 20:07 Troponin I 0.054 ng/mL (< 0.028) H 12/11/16 05:05 - Assessment/Plan 1. Afib RVR, rate controlled 2. Pneumonia 3. Hx of pulmonary embolism. 4. Chronic anticoagulation with Coumadin. 5. Supratherapeutic INR, improved. PLAN: - Continue rate control with diltiazem drip. - Would restart warfarin as her INR is back to 1.4
[2016-12-14] MEDS: HumaLOG 300 UNITS/3 ML VIAL SC PRN (17:02)
[2016-12-14] MEDS: Atorvastatin Calcium 10 MG TAB PO SCH (21:02)
[2016-12-15 05:19] LABS: Prothrombin Time 18.6 SEC (12.0-14.7)
[2016-12-15] MEDS: HumaLOG 300 UNITS/3 ML VIAL SC PRN ×2 (06:36→11:21)
[2016-12-15] MEDS: predniSONE 5 MG TAB PO SCH (08:29)
[2016-12-15] MEDS: Famotidine 20 MG TAB PO SCH (08:29)
[2016-12-15] MEDS: Docusate 100 MG CAP PO SCH ×2 (08:30→20:33)
[2016-12-15] MEDS: Divalproex Sodium 125 mg Sprinkle Capsule PO SCH ×2 (08:30→20:33)
[2016-12-15] MEDS: Cefepime 2 GM, Admixture Fee 1 EACH in Sodium Chloride 0.9% 100 ML IVPB SCH ×2 (08:30→20:33)
[2016-12-15] MEDS: Nystatin Powder 15 GM BOT TOP SCH ×2 (08:31→19:15)
[2016-12-15] MEDS: Nystatin 500,000 UNITS/5 ML UDCUP SSW SCH ×4 (08:31→20:33)
--- NOTE | 2016-12-15 08:36 | PRG ---
DATE OF SERVICE: 12/15/2016 She feels better. She is wondering when she gets to go home. It is noted that she is on a Cardizem drip. PHYSICAL EXAMINATION: VITAL SIGNS: Temperature 98.7, pulse 88, respirations 20, O2 sat 95%, blood pressure 129/76. HEENT: Unremarkable. NECK: No JVD. LUNGS: Fairly clear. CARDIAC: S1, S2 irregularly irregular. ABDOMEN: Soft, nontender. EXTREMITIES: No edema. LABORATORY DATA: No new labs were obtained today except for an INR of 1.5. ASSESSMENT: 1. Atrial fibrillation with rapid ventricular response. 2. Lung cancer. 3. Chronic obstructive pulmonary disease with exacerbation. 4. Dementia. 5. Schizophrenia. PLAN: 1. Continue the nebulization treatments. 2. Hopefully able to convert her over to oral medications to control her ventricular rate. 3. Anticoagulation per Cardiology and Internal Medicine. 4. Continue the low dose steroids. 5. Can transfer to the Telemetry Unit from my standpoint.
--- NOTE | 2016-12-15 14:33 | PDOC.PN ---
- Subjective Encounter Start Date: 12/15/16 Encounter Start Time: 11:30 Subjective: MY HANDS ARE SHAKING - Objective Resuscitation Status: Resuscitation Status FULL:Full Resuscitation MAR Reviewed: Yes Vital Signs & Weight: Vital Signs (12 hours) Temp Pulse Pulse Pulse Resp BP BP 12/15/16 13:53 89 16 12/15/16 11:09 98.9 F 103 H 18 12/15/16 10:24 93 18 12/15/16 09:58 87 86 148/71 H 115/80 12/15/16 09:35 115/60 12/15/16 08:00 98.7 F 88 20 12/15/16 07:04 98.7 F 88 20 12/15/16 07:01 83 15 12/15/16 04:00 98.6 F 91 20 12/15/16 02:51 88 12 BP Pulse Ox 12/15/16 13:53 95 12/15/16 11:09 143/78 H 98 12/15/16 10:24 94 L 12/15/16 09:58 12/15/16 09:35 12/15/16 08:00 98 12/15/16 07:04 129/76 95 12/15/16 07:01 94 L 12/15/16 04:00 131/63 100 12/15/16 02:51 Weight Admit Weight 157 lb Weight 153 lb 4.8 oz Most Recent Monitor Data Heart Rate from ECG 106 NIBP 114/71 NIBP BP-Mean 88 Respiration from ECG 15 SpO2 97 I&O: 12/14/16 12/15/16 12/16/16 06:59 06:59 06:59 Intake Total 680 515 240 Balance 680 515 240 Result Diagrams: 12/12/16 04:05 12/14/16 04:20 Additional Labs: Accuchecks 12/15/16 12/15/16 12/14/16 11:00 05:42 19:55 POC Glucose 181 H 198 H 202 H 12/14/16 16:23 POC Glucose 210 H Radiology Reviewed by me: Yes Phys Exam - Physical Examination Constitutional: NAD HEENT: PERRLA, moist MMs Neck: supple, full ROM Respiratory: wheezing present RHONCHI Cardiovascular: irregular Gastrointestinal: non-tender, positive bowel sounds Musculoskeletal: no edema Neurological: non-focal, moves all 4 limbs Psychiatric: normal affect, A&O x 3 Skin: no rash Dx/Plan (1) Abnormal LFTs Code(s): R79.89 - OTHER SPECIFIED ABNORMAL FINDINGS OF BLOOD CHEMISTRY Status : Acute (2) Acute hypoxemic respiratory failure Code(s): J96.01 - ACUTE RESPIRATORY FAILURE WITH HYPOXIA Status: Acute (3) COPD exacerbation Code(s): J44.1 - CHRONIC OBSTRUCTIVE PULMONARY DISEASE W (ACUTE) EXACERBATION Status: Acute Comment: with suspected Pneumonia ?Pneumococcal (4) Electrolyte abnormality Code(s): E87.8 - OTH DISORDERS OF ELECTROLYTE AND FLUID BALANCE, NEC Status: Acute Comment: Hypophosphatemia (5) Lung mass Code(s): R91.8 - OTHER NONSPECIFIC ABNORMAL FINDING OF LUNG FIELD Status: Acute (6) Supratherapeutic INR Code(s): R79.1 - ABNORMAL COAGULATION PROFILE Status: Acute (7) Atrial fibrillation Code(s): I48.91 - UNSPECIFIED ATRIAL FIBRILLATION Status: Chronic Comment: Has been having rapid ventricular response.. On cardiazem dip. Seen by cardiology. (8) CAD (coronary artery disease) Code(s): I25.10 - ATHSCL HEART DISEASE OF [place] CORONARY ARTERY W/O ANG PCTRS Status: Chronic Comment: stable. (9) CKD (chronic kidney disease), stage III Status: Chronic (10) Hx pulmonary embolism Code(s): Z86.711 - PERSONAL HISTORY OF PULMONARY EMBOLISM Status: Chronic (11) Hypertension Code(s): I10 - ESSENTIAL (PRIMARY) HYPERTENSION Status: Chronic - Plan cont current plan of care, continue antibiotics * .
[2016-12-15] MEDS: Nicotine 14 MG PATCH TD SCH (16:40)
[2016-12-15] MEDS ORDERED: Lorazepam 2 MG/ML VIAL SLOW IVP PRN (16:55)
[2016-12-15] MEDS ORDERED: Lorazepam 2 MG/ML VIAL ONE (16:55)
[2016-12-15] MEDS ORDERED: Lorazepam 2 MG/ML VIAL SLOW IVP SCH (17:00)
[2016-12-15] MEDS ORDERED: Warfarin Sodium 2 MG TAB PO SCH (17:00)
[2016-12-15] MEDS: Warfarin Sodium 3 MG TAB PO SCH ×3 (17:39→19:20)
[2016-12-15] MEDS ORDERED: Ziprasidone 20 MG VIAL IM PRN (18:22)
[2016-12-15] MEDS ORDERED: Sterile Water 10 ML VIAL FS PRN (18:26)
[2016-12-15] MEDS: Atorvastatin Calcium 10 MG TAB PO SCH (20:33)
[2016-12-16] MEDS: Diltiazem 125 MG in Sodium Chloride 0.9% 100 ML IVPB SCH (04:09)
[2016-12-16 05:02] LABS: Prothrombin Time 20.1 SEC (12.0-14.7)
[2016-12-16] MEDS: Famotidine 20 MG TAB PO SCH (10:02)
[2016-12-16] MEDS: predniSONE 5 MG TAB PO SCH (10:03)
[2016-12-16] MEDS: Divalproex Sodium 125 mg Sprinkle Capsule PO SCH ×2 (10:03→21:18)
[2016-12-16] MEDS: Docusate 100 MG CAP PO SCH ×2 (10:03→21:18)
[2016-12-16] MEDS: Nystatin 500,000 UNITS/5 ML UDCUP SSW SCH ×4 (10:03→21:56)
[2016-12-16] MEDS: Nystatin Powder 15 GM BOT TOP SCH ×2 (10:05→21:54)
[2016-12-16] MEDS: Cefepime 2 GM, Admixture Fee 1 EACH in Sodium Chloride 0.9% 100 ML IVPB SCH ×2 (10:24→21:18)
--- NOTE | 2016-12-16 11:06 | PDOC.PN ---
- Subjective Encounter Start Date: 12/16/16 Encounter Start Time: 11:04 Patient seen at bedside. Overnight was agitated. Still requiring a Cardizem GTT. - Objective Resuscitation Status: Resuscitation Status FULL:Full Resuscitation MAR Reviewed: Yes Vital Signs & Weight: Vital Signs (12 hours) Temp Pulse Resp BP 12/16/16 04:00 98.8 F 110 H 18 127/71 Weight Admit Weight 157 lb Weight 153 lb 8 oz Most Recent Monitor Data Heart Rate from ECG 106 NIBP 114/71 NIBP BP-Mean 88 Respiration from ECG 15 SpO2 97 I&O: 12/15/16 12/16/16 12/17/16 06:59 06:59 06:59 Intake Total 515 1020 Balance 515 1020 Result Diagrams: 12/12/16 04:05 12/14/16 04:20 Additional Labs: Accuchecks 12/15/16 11:00 POC Glucose 181 H Phys Exam - Physical Examination Constitutional: NAD HEENT: moist MMs Neck: no JVD mild rhonchi b/l Cardiovascular: irregular Gastrointestinal: soft Musculoskeletal: pulses present Neurological: moves all 4 limbs Psychiatric: A&O x 3 Dx/Plan (1) COPD exacerbation Code(s): J44.1 - CHRONIC OBSTRUCTIVE PULMONARY DISEASE W (ACUTE) EXACERBATION Status: Acute (2) Elevated troponin Code(s): R74.8 - ABNORMAL LEVELS OF OTHER SERUM ENZYMES Status: Acute (3) Lung mass Code(s): R91.8 - OTHER NONSPECIFIC ABNORMAL FINDING OF LUNG FIELD Status: Acute (4) Atrial fibrillation Code(s): I48.91 - UNSPECIFIED ATRIAL FIBRILLATION Status: Chronic Comment: Has been having rapid ventricular response.. On cardiazem dip. Seen by cardiology. (5) Dyslipidemia Code(s): E78.5 - HYPERLIPIDEMIA, UNSPECIFIED Status: Chronic - Plan cont current plan of care, continue antibiotics, social service manager, respiratory therapy, DVT proph w/SCDs * Continue IV Antibiotics. If afebrile change to PO abx (cultures are negative) * Diltiazem for rate control * Duonebs/Prednisone * Continue Warfarin * Supportive care
[2016-12-16] MEDS: Warfarin Sodium 3 MG TAB PO SCH (16:24)
[2016-12-16] MEDS: Nicotine 14 MG PATCH TD SCH (16:24)
[2016-12-16] MEDS ORDERED: Benzonatate 100 MG CAP PO PRN (16:48)
--- NOTE | 2016-12-16 19:59 | PRG ---
DATE OF SERVICE: 12/16/2016 SUBJECTIVE: She was delirious this morning, had a sitter at the bedside. OBJECTIVE: VITAL SIGNS: Temperature 97.8, pulse 80, respiratory rate 17, O2 saturation 97%, and blood pressure 107/56. HEENT: Unremarkable. NECK: No JVD. CHEST: Fairly clear. CARDIOVASCULAR: S1 and S2, irregular. ABDOMEN: Soft. EXTREMITIES: No edema. ASSESSMENT: 1. Chronic obstructive pulmonary disease with exacerbation. 2. Right upper lobe lung mass, which is lung cancer. 3. Chronic atrial fibrillation. PLAN: Continue low dose prednisone, continue antibiotics, and watching her for worsening a delirium .
[2016-12-16] MEDS: guaiFENesin ER 600 MG TAB PO SCH (21:18)
[2016-12-16] MEDS: Atorvastatin Calcium 10 MG TAB PO SCH (21:18)
[2016-12-17 05:25] LABS: Prothrombin Time 23.9 SEC (12.0-14.7)
[2016-12-17] MEDS: Diltiazem 125 MG in Sodium Chloride 0.9% 100 ML IVPB SCH (05:33)
[2016-12-17] MEDS: Divalproex Sodium 125 mg Sprinkle Capsule PO SCH ×2 (09:03→21:11)
[2016-12-17] MEDS: predniSONE 5 MG TAB PO SCH (09:03)
[2016-12-17] MEDS: guaiFENesin ER 600 MG TAB PO SCH ×2 (09:03→21:11)
[2016-12-17] MEDS: Cefepime 2 GM, Admixture Fee 1 EACH in Sodium Chloride 0.9% 100 ML IVPB SCH (09:03)
[2016-12-17] MEDS: Nystatin 500,000 UNITS/5 ML UDCUP SSW SCH ×4 (09:03→21:25)
[2016-12-17] MEDS: Famotidine 20 MG TAB PO SCH (09:03)
[2016-12-17] MEDS: Docusate 100 MG CAP PO SCH ×2 (09:03→21:11)
[2016-12-17] MEDS: Nystatin Powder 15 GM BOT TOP SCH ×2 (09:04→21:12)
--- NOTE | 2016-12-17 10:20 | HP ---
DATE OF SERVICE: 12/17/2016 This patient is doing better in terms of her sensorium. PHYSICAL EXAMINATION: VITAL SIGNS: Temperature is 98.8, pulse 91, respirations 18, O2 saturation 98%, blood pressure 114/ 65. HEENT: Unremarkable. NECK: No JVD. LUNGS: Clear without wheezing. CARDIOVASCULAR: S1, S2 regular. ABDOMEN: Soft. EXTREMITIES: No edema. ASSESSMENT: 1. Delirium, which has improved. 2. Chronic obstructive pulmonary disease with exacerbation. 3. Right upper lobe lung cancer. 4. Chronic atrial fibrillation. PLAN: 1. Increase activity as tolerated. 2. Hopefully can be discharged by tomorrow.
--- NOTE | 2016-12-17 11:21 | PDOC.PN ---
- Subjective Encounter Start Date: 12/17/16 Encounter Start Time: 11:15 Patient seen at bedside. No overnight events, today much more lucid, calm. - Objective Resuscitation Status: Resuscitation Status FULL:Full Resuscitation MAR Reviewed: Yes Vital Signs & Weight: Vital Signs (12 hours) Temp Pulse Resp BP Pulse Ox 12/17/16 08:00 98.8 F 91 18 114/65 98 12/17/16 07:33 105 H 20 98 12/17/16 04:00 98.4 F 90 18 105/57 L 92 L 12/17/16 01:30 72 16 98 12/17/16 00:32 96 Weight Admit Weight 157 lb Weight 151 lb 6.4 oz Most Recent Monitor Data Heart Rate from ECG 106 NIBP 114/71 NIBP BP-Mean 88 Respiration from ECG 15 SpO2 97 I&O: 12/16/16 12/17/16 12/18/16 06:59 06:59 06:59 Intake Total 1020 260 Balance 1020 260 Result Diagrams: 12/12/16 04:05 12/14/16 04:20 Additional Labs: Accuchecks 12/17/16 12/16/16 12/16/16 06:33 22:03 16:32 POC Glucose 167 H 133 H 118 H 12/16/16 12:12 POC Glucose 127 H Phys Exam - Physical Examination Constitutional: NAD HEENT: moist MMs Respiratory: clear to auscultation bilateral Cardiovascular: irregular Gastrointestinal: soft Musculoskeletal: pulses present Neurological: moves all 4 limbs Deviation from normal: Awake, alert, Oriented x2 Dx/Plan (1) COPD exacerbation Code(s): J44.1 - CHRONIC OBSTRUCTIVE PULMONARY DISEASE W (ACUTE) EXACERBATION Status: Acute (2) Elevated troponin Code(s): R74.8 - ABNORMAL LEVELS OF OTHER SERUM ENZYMES Status: Acute (3) Lung mass Code(s): R91.8 - OTHER NONSPECIFIC ABNORMAL FINDING OF LUNG FIELD Status: Acute (4) Atrial fibrillation Code(s): I48.91 - UNSPECIFIED ATRIAL FIBRILLATION Status: Chronic (5) Dyslipidemia Code(s): E78.5 - HYPERLIPIDEMIA, UNSPECIFIED Status: Chronic - Plan cont current plan of care, continue antibiotics, social service liaison, respiratory therapy, DVT proph w/lovenox * Transition Cefepime to Levaquin. * Discontinue Cardizem and start PO cardizem * Duonebs * Prednisone * Coumadin (daily INR) * OOB/Ambulate as tolerates * Possible D/C to [facility] tomorrrow
[2016-12-17] MEDS: Warfarin Sodium 2 MG TAB PO SCH (16:24)
[2016-12-17] MEDS: Nicotine 14 MG PATCH TD SCH (16:31)
[2016-12-17] MEDS: HumaLOG 300 UNITS/3 ML VIAL SC PRN (17:23)
[2016-12-17] MEDS: Atorvastatin Calcium 10 MG TAB PO SCH (21:11)
[2016-12-18 06:11] LABS: Prothrombin Time 24.3 SEC (12.0-14.7)
[2016-12-18] MEDS: guaiFENesin ER 600 MG TAB PO SCH ×2 (08:10→20:28)
[2016-12-18] MEDS: Nystatin 500,000 UNITS/5 ML UDCUP SSW SCH ×4 (08:10→20:27)
[2016-12-18] MEDS: Divalproex Sodium 125 mg Sprinkle Capsule PO SCH ×2 (08:10→20:28)
[2016-12-18] MEDS: Famotidine 20 MG TAB PO SCH (08:10)
[2016-12-18] MEDS: predniSONE 5 MG TAB PO SCH (08:10)
[2016-12-18] MEDS: Nystatin Powder 15 GM BOT TOP SCH ×2 (08:11→20:28)
[2016-12-18] MEDS: Docusate 100 MG CAP PO SCH ×2 (08:11→20:27)
--- NOTE | 2016-12-18 08:57 | PRG ---
DATE OF SERVICE: 12/18/2016 SUBJECTIVE: The patient says she is doing better. OBJECTIVE: VITAL SIGNS: On exam, temperature is 98.9, pulse 118, respirations 18, O2 sat 94%, blood pressure 1 37/67. HEENT: Unremarkable. NECK: No JVD. CHEST: Clear without wheezing. CARDIAC: S1 and S2 regular. ABDOMEN: Soft. EXTREMITIES: No edema. ASSESSMENT: 1. Chronic obstructive pulmonary disease with exacerbation. 2. Delirium, which may be secondary to some type of Alzheimer's dementia. 3. Right upper lobe lung cancer. 4. Chronic atrial fibrillation. PLAN: From my standpoint, I think she would probably do better discharge to her senior care where she is in a familiar environment. She is practically off steroids at this point. She is to continu e her bronchodilators and follow up in the office in 4-6 weeks.
--- NOTE | 2016-12-18 10:25 | PDOC.PN ---
- Subjective Encounter Start Date: 12/18/16 Encounter Start Time: 10:22 Patient seen at bedside. No overnight events, no new complaints. - Objective Resuscitation Status: Resuscitation Status FULL:Full Resuscitation MAR Reviewed: Yes Vital Signs & Weight: Vital Signs (12 hours) Temp Pulse Resp BP Pulse Ox 12/18/16 08:55 96 12/18/16 08:53 115 H 16 12/18/16 07:15 98.9 F 118 H 18 137/67 94 L 12/18/16 04:00 98.8 F 114 H 16 158/74 H 92 L 12/18/16 01:43 113 H 18 97 12/18/16 00:29 97 Weight Admit Weight 157 lb Weight 149 lb Most Recent Monitor Data Heart Rate from ECG 106 NIBP 114/71 NIBP BP-Mean 88 Respiration from ECG 15 SpO2 97 I&O: 12/17/16 12/18/16 12/19/16 06:59 06:59 06:59 Intake Total 260 480 Balance 260 480 Result Diagrams: 12/12/16 04:05 12/14/16 04:20 Additional Labs: Accuchecks 12/18/16 12/17/16 12/17/16 06:01 20:02 16:55 POC Glucose 129 H 123 H 191 H 12/17/16 14:44 POC Glucose 148 H Phys Exam - Physical Examination Constitutional: NAD HEENT: moist MMs Respiratory: no wheezing, clear to auscultation bilateral Cardiovascular: irregular Gastrointestinal: soft Musculoskeletal: pulses present Neurological: moves all 4 limbs Deviation from normal: Awake, alert, oriented x2 Dx/Plan (1) COPD exacerbation Code(s): J44.1 - CHRONIC OBSTRUCTIVE PULMONARY DISEASE W (ACUTE) EXACERBATION Status: Acute (2) Elevated troponin Code(s): R74.8 - ABNORMAL LEVELS OF OTHER SERUM ENZYMES Status: Acute (3) Lung mass Code(s): R91.8 - OTHER NONSPECIFIC ABNORMAL FINDING OF LUNG FIELD Status: Acute (4) Atrial fibrillation Code(s): I48.91 - UNSPECIFIED ATRIAL FIBRILLATION Status: Chronic (5) Dyslipidemia Code(s): E78.5 - HYPERLIPIDEMIA, UNSPECIFIED Status: Chronic - Plan cont current plan of care, social work associate, respiratory therapy Continue with Levaquin for another 3 days. Was taken off Cardizem GTT, and started on PO cardizem. Start Metoprolol 12.5 mg PO BID Prednisone Will discharge if HR normalizes.
[2016-12-18] MEDS ORDERED: Metoprolol Tartrate 25 MG TAB PO SCH ×2 (10:30)
[2016-12-18] MEDS: Warfarin Sodium 2 MG TAB PO SCH (17:11)
[2016-12-18] MEDS: Nicotine 14 MG PATCH TD SCH (17:11)
[2016-12-18] MEDS: Atorvastatin Calcium 10 MG TAB PO SCH (20:27)
[2016-12-18] MEDS: Metoprolol Tartrate 25 MG TAB PO SCH (20:28)
--- NOTE | 2016-12-19 09:14 | PRG ---
DATE OF SERVICE: 12/18/2016 SUBJECTIVE: Ms. Hernandez is doing well, has no complaints. PHYSICAL EXAMINATION: VITAL SIGNS: Temperature is 99, pulse 110, respirations 16, O2 sat 97%, and pulse 134/82. HEENT: Unremarkable. NECK: No JVD. CHEST: Clear. CARDIAC: S1 and S2 regular. ABDOMEN: Soft. EXTREMITIES: No edema. ASSESSMENT: 1. Improved delirium. 2. Chronic obstructive pulmonary disease with exacerbation. PLAN: From my standpoint, she is ready to go home. No further pulmonary recommendations. We will sign off. Please recall if further assistance needed.
[2016-12-19] MEDS: predniSONE 5 MG TAB PO SCH (09:24)
[2016-12-19] MEDS: Docusate 100 MG CAP PO SCH (09:25)
[2016-12-19] MEDS: Divalproex Sodium 125 mg Sprinkle Capsule PO SCH (09:25)
[2016-12-19] MEDS: Famotidine 20 MG TAB PO SCH (09:28)
[2016-12-19] MEDS: guaiFENesin ER 600 MG TAB PO SCH (09:29)
[2016-12-19] MEDS: Metoprolol Tartrate 25 MG TAB PO SCH (09:29)
--- NOTE | 2016-12-19 09:52 | PDOC.PN ---
- Subjective Encounter Start Date: 12/19/16 Encounter Start Time: 10:00 Subjective: No complaints. Still with chronic cough but not productive right now. -: Eager to go back to NH. Confusion improved. - Objective Resuscitation Status: Resuscitation Status FULL:Full Resuscitation MAR Reviewed: Yes Vital Signs & Weight: Vital Signs (12 hours) Temp Pulse Resp BP BP Pulse Ox 12/19/16 09:24 110 H 116/75 12/19/16 07:17 97 12/19/16 07:12 110 H 16 12/19/16 04:00 99.0 F 110 H 16 134/82 97 12/19/16 02:25 96 12/19/16 02:22 106 H 16 96 Weight Admit Weight 157 lb Weight 148 lb Most Recent Monitor Data Heart Rate from ECG 106 NIBP 114/71 NIBP BP-Mean 88 Respiration from ECG 15 SpO2 97 I&O: 12/18/16 12/19/16 12/20/16 06:59 06:59 06:59 Intake Total 480 640 230 Balance 480 640 230 Result Diagrams: 12/12/16 04:05 12/14/16 04:20 Additional Labs: Accuchecks 12/19/16 12/18/16 12/18/16 05:33 20:39 16:46 POC Glucose 108 126 H 147 H 12/18/16 11:12 POC Glucose 134 H Phys Exam - Physical Examination Constitutional: NAD HEENT: moist MMs Respiratory: no wheezing, no rales, no rhonchi Cardiovascular: irregular mild tachycardia Gastrointestinal: soft Musculoskeletal: no edema Neurological: non-focal, moves all 4 limbs Psychiatric: normal affect Dx/Plan (1) COPD exacerbation Code(s): J44.1 - CHRONIC OBSTRUCTIVE PULMONARY DISEASE W (ACUTE) EXACERBATION Status: Acute Comment: Improved, finishing off Levaquin 2 more days. Cleared by pulmonary for discharge back to group home. HR low 100s, controlled on oral diltiazem. D/C to NH if ok with cards also. (2) Chronic a-fib Code(s): I48.2 - CHRONIC ATRIAL FIBRILLATION Status: Chronic (3) Lung mass Code(s): R91.8 - OTHER NONSPECIFIC ABNORMAL FINDING OF LUNG FIELD Status: Chronic (4) Encephalopathy acute Code(s): G93.40 - ENCEPHALOPATHY, UNSPECIFIED Status: Resolved - Plan cont current plan of care, continue antibiotics * . - Discharge Day Encounter end time: 11:00
[2016-12-19] MEDS: Nystatin Powder 15 GM BOT TOP SCH (10:39)
[2016-12-19] MEDS: Nystatin 500,000 UNITS/5 ML UDCUP SSW SCH ×3 (10:41→18:25)
[2016-12-19 12:33] VITALS: BMI 25.4
[2016-12-19] MEDS: HumaLOG 300 UNITS/3 ML VIAL SC PRN ×2 (12:46→16:53)
--- NOTE | 2016-12-19 15:17 | PDOC.CTH ---
Cardiology Progress Note - Subjective She is doing well. Her Afib is mostly rate controlled and only gets a little over 100 when she is agitated. She feels jittery right now as she wants to go out and have a cigarette. - Objective Vital Signs Temp Pulse Pulse Pulse Resp BP BP 12/19/16 14:08 113 H 16 12/19/16 11:54 99.3 F 107 H 18 12/19/16 11:16 113 H 16 12/19/16 09:31 137 H 122 H 120/60 12/19/16 09:24 110 H 116/75 12/19/16 08:00 98.7 F 84 16 12/19/16 07:17 12/19/16 07:12 110 H 16 12/19/16 04:00 99.0 F 110 H 16 BP BP Pulse Ox 12/19/16 14:08 12/19/16 11:54 112/61 95 12/19/16 11:16 12/19/16 09:31 116/75 12/19/16 09:24 12/19/16 08:00 116/75 94 L 12/19/16 07:17 97 12/19/16 07:12 12/19/16 04:00 134/82 97 Admit Weight 157 lb Weight 148 lb 12/18/16 12/19/16 12/20/16 06:59 06:59 06:59 Intake Total 480 640 230 Balance 480 640 230 - Physical Examination General/Neuro: alert & oriented x3, NAD Neck: no JVD present Lungs: CTA, unlabored respirations Heart: RRR Abdomen: NT/ND Extremities: other: (no edema.) - Telemetry Telemetry Rhythm: Afib HR 80's. - Labs Result Diagrams: 12/12/16 04:05 12/14/16 04:20 Troponin/CKMB CK-MB (CK-2) 2.1 ng/mL (0-6.6) 12/10/16 20:07 Troponin I 0.054 ng/mL (< 0.028) H 12/11/16 05:05 - Assessment/Plan 1. Afib RVR, rate controlled 2. Pneumonia 3. Hx of pulmonary embolism. 4. Chronic anticoagulation with Coumadin. 5. Supratherapeutic INR, improved. PLAN: - Continue current meds. - No new recs. - May d/c from hospital from cardiac perspective.
[2016-12-19 16:23] VITALS: BP 131/76; TEMP 99.4
[2016-12-19] MEDS: Nicotine 14 MG PATCH TD SCH (16:32)
[2016-12-19] MEDS: Warfarin Sodium 2 MG TAB PO SCH (18:24)
--- NOTE | 2016-12-19 20:52 | DIS ---
PRIMARY CARE PHYSICIAN: Dr. Charles. ADMISSION DIAGNOSES: 1. Hypotension. 2. Sepsis. 3. Urinary tract infection. 4. Acute hypoxic respiratory failure. 5. History of lung mass. 6. Acute on chronic obstructive pulmonary disease. 7. Hypertension. 8. Acute kidney injury. DISCHARGE DIAGNOSES: 1. Chronic obstructive pulmonary disease exacerbation, improved. 2. Chronic atrial fibrillation. 3. Known lung cancer. 4. Acute encephalopathy, resolved. 5. Acute renal failure, resolved. CONSULTATIONS: 1. Pulmonology, Dr. Smith and Dr. Ritchie. 2. Cardiology, Dr. Do. PROCEDURES: None. PERTINENT LABORATORY: 1. Creatinine 1.84 on admission, down to 0.79 at discharge. 2. Blood culture 1 out of 2 was coagulase negative Staphylococcus contaminant. 3. Urine culture with mixed growth. SUMMARY OF HOSPITAL COURSE: This is a 76-year-old female with a known history of lung cancer, hyper tension, coronary artery disease, anxiety, depression, hyperlipidemia, dementia and COPD, who came i n to the hospital from [facility] with lethargy. She was also noted to have a chronic co ugh that started producing sputum. She was found to be hypoxic, 79% on room air and placed on BiPAP . Patient was also noted to have a low blood pressure. She was given IV fluids along with broad-sp ectrum antibiotics for sepsis with pneumonia versus chronic obstructive pulmonary disease exacerbati on. She improved quickly. Pulmonology was consulted. She also had persistent atrial fibrillation with tachycardia that was uncontrolled, so Cardiology was consulted, Dr. Do. Patient had her [place] PD improved with steroids and antibiotics and is now been cleared by Pulmonology to return to the [facility]. She does have 2 more days of antibiotics to complete the Levaquin. The patient was put on Cardizem and beta-jesus added due to persistent tachycardia from atrial fibrillation. She als o initially had an elevated INR. This improved with holding Coumadin and has now been restarted. S he is stable from a cardiology standpoint as well and [facility] DISCHARGE MANAGEMENT: Back to [facility]. DISCHARGE MEDICATIONS: 1. Warfarin 2.5 mg and 5 mg on alternating days. 2. Trazodone 25 mg twice a day. 3. Zyprexa 10 mg every 8 hours IM as needed. 4. Zoloft 25 mg daily. 5. Zofran 8 mg sublingual every 4 hours as needed. 6. Vitamin C 500 mg twice a day. 7. Xanax as needed. 8. Vitamin B12 every 42 days IM. 9. Acetaminophen as needed. 10. Trazodone 150 mg at night. 11. Tessalon Perles 100 mg 3 times a day as needed for coughing. 12. Prednisone 10 mg daily. 13. Promethazine 25 mg every 4 hours as needed. 14. Regular insulin for sliding scale. 15. Multivitamin daily. 16. Incruse Ellipta 1 inhalation daily. 17. Lisinopril 10 mg daily. 18. Atorvastatin 10 mg at night. 19. Imodium as needed. 20. Glipizide 5 mg daily. 21. Folic acid 400 mcg daily. 22. Pepcid 20 mg twice a day. 23. Depakote Sprinkle 125 mg twice a day. 24. Aricept 10 mg at night. 25. Anoro Ellipta 1 puff inhaled daily. 26. Albuterol sulfate nebulizer every 4 hours as needed. 27. Guaifenesin 600 mg twice a day. 28. Metoprolol tartrate 12.5 mg twice a day. 29. Levofloxacin 750 mg daily for another 2 days. 30. Diltiazem HCL 240 mg daily. ACTIVITIES: As tolerated. DIET: Diabetic diet. FOLLOWUP: The patient is to follow up with Dr. Charles as an outpatient, with Dr. Bhatt about the cancer and with Dr. Do about her atrial fibrillation.
--- NOTE | 2016-12-23 13:12 | PQF ---
TIFFANIE GREGORY Lázaro Arenas [id number] CLINICAL DOCUMENTATION CLARIFICATION FORM: POST DISCHARGE Addendum to original discharge summary date: ____ Late entry note date: __ DATE: 12/23/16 ATTN: Lenny Hampton MD Please exercise your independent, professional judgment in responding to the clarification form. Clinical indicators are provided on the bottom of this form for your review Discharge Summary: Admission Diagnoses: 1. Hypotension 2. Sepsis H & P Assessment and Plan: #2. Sepsis secondary to uti Please check appropriate box(s): [ X ] Sepsis due to: (Pna, UTI, gangrenous gall bladder, etc.) Due to: [ ] Device (please specify) [ ] Implant [ ] Graft [ ] Infusion [ ] SIRS due to non-infectious process (please specify etiology) [ ] with organ dysfunction [ ] without organ dysfunction [ ] Severe sepsis with acute organ dysfunction of: (Examples: respiratory failure, encephalopathy, acute kidney failure, other) [ ] Localized infection without sepsis [ ] Other diagnosis [ ] Unable to determine In addition, please specify: Present on Admission (POA): [ X ] Yes [ ] No [ ] Unable to determine For continuity of documentation, please document condition throughout progress notes and discharge summary. Thank You. CLINICAL INDICATORS - SIGNS / SYMPTOMS / LABS Altered mental status Fever or hypothermia (<96.8 F/36 C or > 100.4 F/38C) Respiratory rate >22/min, Hypoxemia, SBP <100mmHg Metabolic acidosis Lactic Acid >2mmol/L, Increase BUN/Weather Teacher, decrease GFR, coag abnormalities, thrombocytopenia-plts <100k Oliguria Shock-hypotension resistant to IV fluid boluses WBC count (>12,000/mm^4 or <4000/mm^3 or 10% neuts, 10% bands) Hyperglycemia in absence of diabetes mellitus Positive blood cultures RISK FACTORS Infection/Bacteremia Pneumonia, UTI, infected wound, gangrenous gall bladder Diabetes or Cancer Surgery / surgical instrumentation / trauma Ruptured/perforated bowel, ruptured appendix Immunosuppression Advancing Age TREATMENTS: Initiation Sepsis Protocol ICU Daily CBC Blood/sputum/wound cultures ID Consult IV antibiotics - broad spectrum IV ?uids Vasopressors, meds (This form is maintained as a part of the permanent medical record) 2014 [employer] All Rights Reserved [email or web address] [phone] QUINCY
--- NOTE | 2016-12-27 19:42 | EKG ---
Test Reason : AMS Blood Pressure : / mmHG Vent. Rate : 079 BPM Atrial Rate : 079 BPM P-R Int : 148 ms QRS Dur : 084 ms QT Int : 424 ms P-R-T Axes : -11 -20 -04 degrees QTc Int : 486 ms Normal sinus rhythm Normal ECG Confirmed by CAITLIN PYEL D.O. ([id number]), medical editor RICCO PEREZ ([id number]) on 12/27/2016 7:42:27 PM Referred By: Confirmed By:CAITLIN PYLE D.O.
== END 2016-12-19 19:47 | DRG 871 ==
LOC: ERS 19:34 → CCU 23:15 → IMCU/EMU 12-11 16:42 → 2NO 12-15 11:47
PROVIDERS: ADMIT Internal Medicine; ATTEND Internal Medicine
PROC: 5A09357 Assistance with Respiratory Ventilation, Less than 24 Consecutive Hours, Continuous Positive Airway Pressure (ICD-10-PCS; principal; 2016-12-11)
DX: A41.9 Sepsis, unspecified organism (principal); J96.01 Acute respiratory failure with hypoxia; N17.9 Acute kidney failure, unspecified; G93.41 Metabolic encephalopathy; J18.9 Pneumonia, unspecified organism; C34.11 Malignant neoplasm of upper lobe, right bronchus or lung; I48.1 Persistent atrial fibrillation; N39.0 Urinary tract infection, site not specified; J44.1 Chronic obstructive pulmonary disease with (acute) exacerbation; E44.1 Mild protein-calorie malnutrition; J44.0 Chronic obstructive pulmonary disease with (acute) lower respiratory infection; G30.9 Alzheimer's disease, unspecified; F02.80 Dementia in other diseases classified elsewhere, unspecified severity, without behavioral disturbance, psychotic disturbance, mood disturbance, and anxiety; I48.2 Chronic atrial fibrillation; E83.39 Other disorders of phosphorus metabolism; F20.9 Schizophrenia, unspecified; N18.3 Chronic kidney disease, stage 3 (moderate); I12.9 Hypertensive chronic kidney disease with stage 1 through stage 4 chronic kidney disease, or unspecified chronic kidney disease; I25.10 Atherosclerotic heart disease of native coronary artery without angina pectoris; E78.5 Hyperlipidemia, unspecified; R65.20 Severe sepsis without septic shock; R74.8 Abnormal levels of other serum enzymes; F17.210 Nicotine dependence, cigarettes, uncomplicated; Z68.25 Body mass index [BMI] 25.0-25.9, adult; Z95.1 Presence of aortocoronary bypass graft; Z88.5 Allergy status to narcotic agent; Z88.8 Allergy status to other drugs, medicaments and biological substances; Z79.01 Long term (current) use of anticoagulants; Z86.711 Personal history of pulmonary embolism; F41.9 Anxiety disorder, unspecified; F32.9 Major depressive disorder, single episode, unspecified; R91.8 Other nonspecific abnormal finding of lung field
CPT/HCPCS: 36415; 36416; 51701; 71010; 80048; 80053; 81003; 81015; 82140; 82330; 82553; 82607; 82746; 82803; 83605; 83630; 83735; 84100; 84484; 85025; 85610; 85730; 87015; 87040; 87045; 87046; 87077; 87086; 87149; 87186; 87324; 87328; 87329; 87449; 87899; 93005; 94640; 94660; 94760; 96360; 96365; 96367; A4216; A4353; G8978-GP-CL; G8979-GP-CK; G8987-GO-CL; G8988-GO-CJ; J0692; J2060; J2543; J2920; J3370; J3430; J3486; J7050; J7620